=== PATIENT | female | born 1990 | race Caucasian/White ===

== ENCOUNTER 2017-01-31 16:22 | Emergency (ER) | payer OTHER ==
--- NOTE | 2017-01-31 16:55 | ED NURSING NOTES ---
Clinical Report - Nurses [facility] [address] [place] [address] 01/31/2017 16:23 Patient: LEMUEL PALACIO TRIAGE Triage time 16:34 Jan 31 2017. Chief Complaint: PAIN TO RIGHT EYE. PAIN TO LEFT EYE. BURNING and ITCHING TO RIGHT EYE. 16:38 01/31/17. Alert. No acute distress. SEPSIS SCREEN: Sepsis Screen. Negative (no infection suspected/documented). --16:38 Nicolasa Dietz 16:38 01/31/17. BP: 109/75. HR: 71. RR: 14. O2 saturation: 100%. Temp: 98.2 F. Pain level now 2/10. --16:38 Nicolasa Dietz. Weight: 63.5 kg stated. Height/Length: 65 inches Per Patient. BMI: 23.3. --16:38 Nicolasa Dietz. Medications None. --16:36 Nicolasa Dietz. Medication/allergy information source: the patient. --16:38 Nicolasa Dietz. Allergies None. --16:36 Nicolasa Dietz. History Arrived by private vehicle. Historian: patient. Accompanied by family. Primary physician ([facility]). Onset. (A few days ago). ( Mother reports that she started having burning and itching in her right eye that is now in the left. Believes that daughter has pink eye. Pt states that she has had blurred vision but only while driving. Wears glasses while driving normally.). She has had eye discomfort and eye irritation. No eye discharge. PAST MEDICAL HX: No history of diabetes mellitus or hypertension. No history of glaucoma or prior eye injury. She does not wear contact lenses. Immunizations: up-to-date. Last normal menstrual period was 8 weeks ago. SOCIAL HX: Never smoker. No alcohol use or drug use. FALL RISK ASSESSMENT: Fall risk assessment completed. No fall risk identified. NUTRITIONAL RISK ASSESSMENT: The nutritional risk assessment revealed no deficiencies. FUNCTIONAL ASSESSMENT: Functional assessment: no impairments noted. LEARNING NEEDS ASSESSMENT: The learning needs assessment revealed no barriers. SKIN INTEGRITY ASSESSMENT: Skin integrity risk assessment completed. No skin integrity risk identified. --16:38 Nicolasa Dietz. PROBLEMS: Fracture. Skin Rash. --16:36 Nicolasa Dietz. Assessment The patient states feels the same. --16:38 Nicolasa Dietz. Interventions ID band on patient. --16:38 Nicolasa Dietz. PHYSICAL ASSESSMENT 16:38 01/31/17. Ambulatory to room. GENERAL / NEURO / PSYCH: Alert. Appears in no acute distress. HEENT: No facial asymmetry noted. Pupils equal, round and reactive to light. EOM intact. RESPIRATORY: Respirations not labored. CVS: Capillary refill less than 2 seconds. SKIN: Skin is warm and dry. Normal skin turgor. --16:38 Nicolasa Dietz. NURSING PROGRESS NOTES 16:38 01/31/17. The plan of care for this patient has been created. Head of bed elevated. Reassurance given. Two patient identifiers checked. Call light placed in reach. Side rails up x 1. Bed placed in lowest position. Brakes of bed on. Patient ready for evaluation- chart flagged and ED physician and EMPLOYMENT COACH notified. --16:38 Nicolasa Dietz. DISPOSITION / DISCHARGE 17:01/31/17. Departure time: 17:Jan 31 2017. Condition at departure: unchanged. The goals identified in the patient's plan of care were met. No learning barriers present. Discharge instructions provided and reviewed with the patient. Reviewed warnings (Patient verbalized awareness of warning s/sx listed in dc paperwork.). Reviewed medication(s) side effects, precautions, dosing and course information. Prescription(s) given to the patient (Polytrim). Treatments reviewed. Reviewed referral to a primary care physician for followup. Patient verbalized understanding. Written instructions provided in Luxembourgish. The patient was discharged by the nurse practitioner. She was discharged home and accompanied by family. She left the Emergency Department ambulatory and via private vehicle. Patient driving. FALL RISK ASSESSMENT: Fall risk assessment completed. No fall risk identified. --17:06 Nicolasa Dietz 17:05 01/31/17. BP: deferred. HR: deferred. RR: deferred. O2 saturation: deferred. Temp: deferred. Pain level now deferred. --17:06 Nicolasa Dietz. Locked/Released at 02/01/2017 13:30 by Nicolasa Dietz,
--- NOTE | 2017-01-31 16:55 | ED CLINICAL REPORT ---
Clinical Report - Physicians/Mid Levels [facility] [address] [place] [address] 01/31/2017 16:23 Patient: LEMUEL PALACIO Time Seen: 16:31; initial patient contact, initial documentation, patient care assumed. Arrived- By private vehicle. Historian- patient. HISTORY OF PRESENT ILLNESS Chief Complaint: EYE REDNESS and IRRITATION. This started about 2 days ago, involves the right and left eye, is characterized as mild and has been constant and is still present. The patient did not sustain an injury. Not injured from contact lenses. Eye discomfort, burning, redness, irritation and itching. No photophobia, blurred vision, double vision, decreased vision or loss of vision. ( pink eye contact, daughter also here as pt with it). REVIEW OF SYSTEMS All systems otherwise negative, except as recorded above. PAST HISTORY See nurses notes. PROBLEMS: Fracture. Skin Rash. --16:36 Nicolasa Dietz. SOCIAL HISTORY Never smoker. No alcohol use or drug use. FAMILY HISTORY No significant family medical history. ADDITIONAL NOTES The nursing notes have been reviewed with agreement regarding the chief complaint, HPI, ROS, PMH and patient medications and allergies. PHYSICAL EXAM Vital Signs: 01/31/2017 16:38 BP: 109/75. HR: 71. RR: 14. O2 saturation: 100%. Temp: 98.2 F. Have been reviewed as normal and appear to be correct. Appearance: Alert. Oriented X3. No acute distress. HEENT: Nose normal. Head appears normal to external inspection. Rt Eye: Right eye exam normal. Conjunctival edema. Eyes: Eyelids appear normal to inspection. Conjunctivae and sclerae do not appear normal to inspection. Corneas appear normal to inspection. Pupils equal, round and reactive to light. Accommodation normal. Funduscopic exam normal. Visual reid normal. EOMs intact. Periorbital areas appear normal to inspection. Anterior chambers clear. Anterior chambers of normal depth. Lt Eye: Left eye exam normal. Conjunctival edema. Neck: Neck supple. Normal inspection. Respiratory: No respiratory distress. Skin: No rash. Extremities: Extremities negative. Neuro: Oriented X 3. Mood/affect normal. No motor deficit. No sensory deficit. PROGRESS AND PROCEDURES Patient counseled in person regarding the patient's stable condition and diagnosis. 16:55. Differential Diagnosis: Other possible considerations: conjunctivitis - allergic, viral, bacterial, fb, corneal abrasion. Above considerations are based on history and physical exam. Differential diagnosis was discussed with patient. Disposition: Discharged home in good and unchanged condition (16:55). Condition: good and stable. CLINICAL IMPRESSION Acute mucopurulent conjunctivitis of the right eye and left eye. INSTRUCTIONS Warnings: GENERAL WARNINGS: Return or contact your physician immediately if your condition worsens or changes unexpectedly, if not improving as expected, or if other problems arise. Specifically return if problem worsens. Prescription Medications: Polytrim ophthalmic solution: Instill 1 drop into affected eye every 3 hours while awake (max 6 doses per day) for 1 week. Dispense five (5) mL. No refills. Substitution is permissible. Follow-up: Follow up with your doctor in about three days even if well. Call for an appointment. Summary of care provided to patient. Understanding of the discharge instructions verbalized by patient. (Electronically signed by Tonya Randolph A.R.N.P. 02/01/2017 12:59)
--- NOTE | 2017-01-31 16:55 | ED NURSING NOTES ---
Clinical Report - Nurses [facility] [address] [place] [address] 01/31/2017 16:23 Patient: LEMUEL PALACIO TRIAGE Triage time 16:34 Jan 31 2017. Chief Complaint: PAIN TO RIGHT EYE. PAIN TO LEFT EYE. BURNING and ITCHING TO RIGHT EYE. 16:38 01/31/17. Alert. No acute distress. SEPSIS SCREEN: Sepsis Screen. Negative (no infection suspected/documented). --16:38 Nicolasa Dietz 16:38 01/31/17. BP: 109/75. HR: 71. RR: 14. O2 saturation: 100%. Temp: 98.2 F. Pain level now 2/10. --16:38 Nicolasa Dietz. Weight: 63.5 kg stated. Height/Length: 65 inches Per Patient. BMI: 23.3. --16:38 Nicolasa Dietz. Medications None. --16:36 Nicolasa Dietz. Medication/allergy information source: the patient. --16:38 Nicolasa Dietz. Allergies None. --16:36 Nicolasa Dietz. History Arrived by private vehicle. Historian: patient. Accompanied by family. Primary physician ([facility]). Onset. (A few days ago). ( Mother reports that she started having burning and itching in her right eye that is now in the left. Believes that daughter has pink eye. Pt states that she has had blurred vision but only while driving. Wears glasses while driving normally.). She has had eye discomfort and eye irritation. No eye discharge. PAST MEDICAL HX: No history of diabetes mellitus or hypertension. No history of glaucoma or prior eye injury. She does not wear contact lenses. Immunizations: up-to-date. Last normal menstrual period was 8 weeks ago. SOCIAL HX: Never smoker. No alcohol use or drug use. FALL RISK ASSESSMENT: Fall risk assessment completed. No fall risk identified. NUTRITIONAL RISK ASSESSMENT: The nutritional risk assessment revealed no deficiencies. FUNCTIONAL ASSESSMENT: Functional assessment: no impairments noted. LEARNING NEEDS ASSESSMENT: The learning needs assessment revealed no barriers. SKIN INTEGRITY ASSESSMENT: Skin integrity risk assessment completed. No skin integrity risk identified. --16:38 Nicolasa Dietz. PROBLEMS: Fracture. Skin Rash. --16:36 Nicolasa Dietz. Assessment The patient states feels the same. --16:38 Nicolasa Dietz. Interventions ID band on patient. --16:38 Nicolasa Dietz. PHYSICAL ASSESSMENT 16:38 01/31/17. Ambulatory to room. GENERAL / NEURO / PSYCH: Alert. Appears in no acute distress. HEENT: No facial asymmetry noted. Pupils equal, round and reactive to light. EOM intact. RESPIRATORY: Respirations not labored. CVS: Capillary refill less than 2 seconds. SKIN: Skin is warm and dry. Normal skin turgor. --16:38 Nicolasa Dietz. NURSING PROGRESS NOTES 16:38 01/31/17. The plan of care for this patient has been created. Head of bed elevated. Reassurance given. Two patient identifiers checked. Call light placed in reach. Side rails up x 1. Bed placed in lowest position. Brakes of bed on. Patient ready for evaluation- chart flagged and ED physician and CHILDCARE ADMINISTRATOR notified. --16:38 Nicolasa Dietz. DISPOSITION / DISCHARGE 17:01/31/17. Departure time: 17:Jan 31 2017. Condition at departure: unchanged. The goals identified in the patient's plan of care were met. No learning barriers present. Discharge instructions provided and reviewed with the patient. Reviewed warnings (Patient verbalized awareness of warning s/sx listed in dc paperwork.). Reviewed medication(s) side effects, precautions, dosing and course information. Prescription(s) given to the patient (Polytrim). Treatments reviewed. Reviewed referral to a primary care physician for followup. Patient verbalized understanding. Written instructions provided in Japanese. The patient was discharged by the nurse practitioner. She was discharged home and accompanied by family. She left the Emergency Department ambulatory and via private vehicle. Patient driving. FALL RISK ASSESSMENT: Fall risk assessment completed. No fall risk identified. --17:06 Nicolasa Dietz 17:05 01/31/17. BP: deferred. HR: deferred. RR: deferred. O2 saturation: deferred. Temp: deferred. Pain level now deferred. --17:06 Nicolasa Dietz. Locked/Released at 02/01/2017 13:30 by Nicolasa Dietz,
--- NOTE | 2017-02-02 02:32 | ED MED RECONCILIATION SUMMARY ---
Patient: LEMUEL PALACIO Medication Reconciliation Report [facility] VisitID: [id number] [address] [place] [address] 26y, F Registration Date/Time: 01/31/2017 Weight: 63.5 kg Height/Length: 65 in. BMI: 23.3 ALLERGIES: None The patient's Home Medications are listed below: NONE. The source(s) of the original Home Medication information: patient The following Medications were given to the patient in the Emergency Department: None. The following Medications were prescribed to the patient: Polytrim ophthalmic solution: Instill 1 drop into affected eye every 3 hours while awake (max 6 doses per day) for 1 week. Dispense five (5) mL. No refills. Substitution is permissible. -- Tonya Randolph A.R.N.P.
--- NOTE | 2017-02-02 02:32 | ED MED RECONCILIATION SUMMARY ---
Patient: LEMUEL PALACOI Medication Reconciliation Report [facility] VisitID: [id number] [address] [place] [address] 26y, F Registration Date/Time: 01/31/2017 Weight: 63.5 kg Height/Length: 65 in. BMI: 23.3 ALLERGIES: None The patient's Home Medications are listed below: NONE. The source(s) of the original Home Medication information: patient The following Medications were given to the patient in the Emergency Department: None. The following Medications were prescribed to the patient: Polytrim ophthalmic solution: Instill 1 drop into affected eye every 3 hours while awake (max 6 doses per day) for 1 week. Dispense five (5) mL. No refills. Substitution is permissible. -- Tonya Randolph A.R.N.P.
--- NOTE | 2017-02-02 02:32 | ED DISCHARGE INSTRUCTIONS ---
Patient: LEMUEL PALACIO General Instructions [facility] VisitID: [id number] [place] [address] 26y, F Registration Date/Time: 01/31/2017 INSTRUCTIONS Warnings: GENERAL WARNINGS: Return or contact your physician immediately if your condition worsens or changes unexpectedly, if not improving as expected, or if other problems arise. Specifically return if problem worsens. Prescription Medications: Polytrim ophthalmic solution: Instill 1 drop into affected eye every 3 hours while awake (max 6 doses per day) for 1 week. Dispense five (5) mL. No refills. Substitution is permissible. Follow-up: Follow up with your doctor in about three days even if well. Call for an appointment. Summary of care provided to patient. Understanding of the discharge instructions verbalized by patient. ADDITIONAL INFORMATION Conjunctivitis, Non-Specific The membrane that covers your eye is inflamed. Any itching, burning or irritation should go away within the next 24 hours. Conjunctivitis may be related to a particle that was in your eye. If so, it was washed out with your tears or irrigation treatment. Being exposed to liquid chemicals or fumes may also cause this reaction. Your condition does not appear to be due to an eye infection. Home Care: Apply a cold pack (ice in a plastic bag, wrapped in a towel) over the eye for 20 minutes at a time. This will reduce pain. Eye drops may be prescribed to reduce irritation or redness. Otherwise, Visine or similar [id number] decongestant eye drops may be used. You may use acetaminophen (Tylenol) or ibuprofen (Motrin, Advil) to control pain, unless another medicine was prescribed. [ NOTE: If you have chronic liver or kidney disease or ever had a stomach ulcer or GI bleeding, talk with your doctor before using these medicines.] Follow Up with your doctor or this facility as directed, or if your symptoms have not improved after 24 hours. Get Prompt Medical Attention if any of the following occur: Increased eyelid swelling Increase in eye pain Increased redness or drainage from the eye Failure of normal vision to return within 24-48 hours. Trimethoprim Sulfate, Polymyxin B Sulfate Eye drops, solution What is this medicine? POLYMYXIN B and TRIMETHOPRIM (nadine i MIX in B and trye METH oh prim) eye drops treat certain eye infections caused by bacteria. How should I use this medicine? This medicine is used in the eye. Follow the directions on the prescription label. Wash your hands before and after use. Tilt your head back slightly. Pull your lower eyelid down gently to form a pouch. Do not touch the tip of the dropper to your eye, fingertips, or other surface. Squeeze the prescribed number of drops into the pouch. Close the eye gently to spread the drops. Use your medicine at regular intervals. Do not take your medicine more often than directed. Use all of your medicine as directed even if you think your are better. Do not skip doses or stop your medicine early. Talk to your tare weigher regarding the use of this medicine in children. While this drug may be prescribed for children and infants for selected conditions, precautions do apply. What side effects may I notice from receiving this medicine? Side effects that you should report to your doctor or health home care coordinator as soon as possible: burning, stinging, or swelling change in vision or blurred vision that will not go away eye pain itching and redness rash Side effects that usually do not require medical attention (report to your doctor or health home care coordinator if they continue or are bothersome): temporary blurred vision after applying temporary watering or stinging What may interact with this medicine? Interactions are not expected. Do not use any other eye products without advice of your doctor or health home care coordinator. What if I miss a dose? If you miss a dose, use it as soon as you can. If it is almost time for your next dose, use only that dose. Do not use double or extra doses. Where should I keep my medicine? Keep out of the reach of children. Store at room temperature 15 to 25 degrees C (59 to 77 degrees F). Protect from light. To prevent the spread of infection, it is best to throw away any unused eye drops after you finish the course of treatment. Throw away any unused medicine after the expiration date. What should I tell my health care provider before I take this medicine? They need to know if you have any of these conditions: wear contact lenses an unusual or allergic reaction to polymyxin B, trimethoprim, other medicines, foods, dyes, or preservatives or trying to get breast-feeding What should I watch for while using this medicine? Check with your doctor or health home care coordinator if your condition does not get better after 5 days, or if it gets worse. If you wear contact lenses, ask when you can use your lenses again. A burning or stinging reaction that does not go away may mean you are allergic to this product. Stop use and call your doctor or health home care coordinator. To prevent the spread of infection, do not share eye products or other personal items with anyone else. You have been given the following additional information: Conjunctivitis, Non-Specific Trimethoprim Sulfate, Polymyxin B Sulfate Eye drops, solution (Electronically signed by Tonya Randolph A.R.N.P. 02/01/2017 12:59)
--- NOTE | 2017-02-02 02:32 | ED MAR SUMMARY ---
..... Medication Administration Record [facility] [address] [place], [place] [id number] Patient: LEMUEL PALACIO Visit ID: [id number] 26y, F Weight: 63.5 kg Height/Length: 65 in BMI: 23.3 ALLERGIES: None
--- NOTE | 2017-02-02 02:32 | ED MAR SUMMARY ---
..... Medication Administration Record [facility] [address] [place] [id number] Patient: LEMUEL PALACIO Visit ID: [id number] 26y, F Weight: 63.5 kg Height/Length: 65 in BMI: 23.3 ALLERGIES: None
--- NOTE | 2017-02-02 02:32 | ED DISCHARGE INSTRUCTIONS ---
Patient: LEMUEL PALACIO General Instructions [facility] VisitID: [id number] [place] [address] 26y, F Registration Date/Time: 01/31/2017 INSTRUCTIONS Warnings: GENERAL WARNINGS: Return or contact your physician immediately if your condition worsens or changes unexpectedly, if not improving as expected, or if other problems arise. Specifically return if problem worsens. Prescription Medications: Polytrim ophthalmic solution: Instill 1 drop into affected eye every 3 hours while awake (max 6 doses per day) for 1 week. Dispense five (5) mL. No refills. Substitution is permissible. Follow-up: Follow up with your doctor in about three days even if well. Call for an appointment. Summary of care provided to patient. Understanding of the discharge instructions verbalized by patient. ADDITIONAL INFORMATION Conjunctivitis, Non-Specific The membrane that covers your eye is inflamed. Any itching, burning or irritation should go away within the next 24 hours. Conjunctivitis may be related to a particle that was in your eye. If so, it was washed out with your tears or irrigation treatment. Being exposed to liquid chemicals or fumes may also cause this reaction. Your condition does not appear to be due to an eye infection. Home Care: Apply a cold pack (ice in a plastic bag, wrapped in a towel) over the eye for 20 minutes at a time. This will reduce pain. Eye drops may be prescribed to reduce irritation or redness. Otherwise, Visine or similar [id number] decongestant eye drops may be used. You may use acetaminophen (Tylenol) or ibuprofen (Motrin, Advil) to control pain, unless another medicine was prescribed. [ NOTE: If you have chronic liver or kidney disease or ever had a stomach ulcer or GI bleeding, talk with your doctor before using these medicines.] Follow Up with your doctor or this facility as directed, or if your symptoms have not improved after 24 hours. Get Prompt Medical Attention if any of the following occur: Increased eyelid swelling Increase in eye pain Increased redness or drainage from the eye Failure of normal vision to return within 24-48 hours. Trimethoprim Sulfate, Polymyxin B Sulfate Eye drops, solution What is this medicine? POLYMYXIN B and TRIMETHOPRIM (nadine i MIX in B and trye METH oh prim) eye drops treat certain eye infections caused by bacteria. How should I use this medicine? This medicine is used in the eye. Follow the directions on the prescription label. Wash your hands before and after use. Tilt your head back slightly. Pull your lower eyelid down gently to form a pouch. Do not touch the tip of the dropper to your eye, fingertips, or other surface. Squeeze the prescribed number of drops into the pouch. Close the eye gently to spread the drops. Use your medicine at regular intervals. Do not take your medicine more often than directed. Use all of your medicine as directed even if you think your are better. Do not skip doses or stop your medicine early. Talk to your collection systems modeler regarding the use of this medicine in children. While this drug may be prescribed for children and infants for selected conditions, precautions do apply. What side effects may I notice from receiving this medicine? Side effects that you should report to your doctor or health social worker palliative care as soon as possible: burning, stinging, or swelling change in vision or blurred vision that will not go away eye pain itching and redness rash Side effects that usually do not require medical attention (report to your doctor or health social worker palliative care if they continue or are bothersome): temporary blurred vision after applying temporary watering or stinging What may interact with this medicine? Interactions are not expected. Do not use any other eye products without advice of your doctor or health social worker palliative care. What if I miss a dose? If you miss a dose, use it as soon as you can. If it is almost time for your next dose, use only that dose. Do not use double or extra doses. Where should I keep my medicine? Keep out of the reach of children. Store at room temperature 15 to 25 degrees C (59 to 77 degrees F). Protect from light. To prevent the spread of infection, it is best to throw away any unused eye drops after you finish the course of treatment. Throw away any unused medicine after the expiration date. What should I tell my health care provider before I take this medicine? They need to know if you have any of these conditions: wear contact lenses an unusual or allergic reaction to polymyxin B, trimethoprim, other medicines, foods, dyes, or preservatives or trying to get breast-feeding What should I watch for while using this medicine? Check with your doctor or health social worker palliative care if your condition does not get better after 5 days, or if it gets worse. If you wear contact lenses, ask when you can use your lenses again. A burning or stinging reaction that does not go away may mean you are allergic to this product. Stop use and call your doctor or health social worker palliative care. To prevent the spread of infection, do not share eye products or other personal items with anyone else. You have been given the following additional information: Conjunctivitis, Non-Specific Trimethoprim Sulfate, Polymyxin B Sulfate Eye drops, solution (Electronically signed by Tonya Randolph A.R.N.P. 02/01/2017 12:59)
== END 2017-01-31 17:06 | disposition home or self-care (01) ==
LOC: ED SRH 16:22
DX: H10.023 Other mucopurulent conjunctivitis, bilateral (principal)